=== PATIENT | female | born 1955 | race Caucasian/White ===

== ENCOUNTER → 2016-09-06 | Outpatient (CLI) | payer OTHER ==
--- NOTE | 2016-09-06 17:34 | CT ---
EXAMINATION TYPE: CT ChestAbdPelvis w con DATE OF EXAM: 09/06/2016 5:14 PM COMPARISON: 03/29/2016 and 06/23/2015 HISTORY: Patient has no complaints at time of study. Follow up study for known uterine CA and lung n odule. CT DLP: 1938.1 mGycm Automated exposure control for dose reduction was used. CONTRAST: CT scan of the chest, abdomen and pelvis is performed with Oral Contrast and with IV Contrast, patien t injected with 100 mL of Omnipaque 300. FINDINGS: There is mild subsegmental atelectasis at the posterior lung bases. There is a faint noncalcified 8 m m nodule in the subpleural right lower lobe. There is no pleural effusion. There is no pericardial effusion. Liver spleen pancreas gallbladder appear normal. Bile ducts are not dilated. There is no adrenal mass. Kidneys show satisfactory contrast opacification. There is no hydronephrosi s. There is no retroperitoneal adenopathy. There is no ascites. There is no mediastinal adenopathy. There are no hilar masses. There is no evidence of aortic aneurys m or dissection. There is an umbilical hernia that contains omental fat. There is a large air-filled appendix. There i s no sign of appendicitis. I see no intestinal wall thickening. There are no dilated loops. Letter di stends smoothly. Hysterectomy is noted. There is no pelvic mass. There are spondylotic changes in the thoracic and lumbar spine. I see no focal bone destruction. There is hypertrophic facet arthropathy in the lower lumbar spine. IMPRESSION: Stable right lower lobe nodule compared to last CT scan of 03/29/2016. Stable umbilical h ernia. No sign of acute abdomen and pelvis. No evidence of recurrent tumor.
== END | disposition home or self-care (01) ==
LOC: RADCTMAIN 16:49
PROVIDERS: ATTEND Internal Medicine
DX: R91.1 Solitary pulmonary nodule (principal); C57.4 Malignant neoplasm of uterine adnexa, unspecified
CPT/HCPCS: 71260; 74177; Q9967

== ENCOUNTER → 2017-08-30 | Outpatient (CLI) | payer OTHER ==
--- NOTE | 2017-08-30 14:01 | MM ---
Reason for exam: screening (asymptomatic). Last mammogram was performed 1 year and 5 months ago. History: Patient is postmenopausal, has history of other cancer at age 58, and had first child at age 38. Family history of breast cancer in paternal aunt. Physical Findings: A clinical breast exam by your physician is recommended on an annual basis and results should be correlated with mammographic findings. MG Screening Mammo w CAD Bilateral CC and MLO view(s) were taken. Prior study comparison: March 31, 2016, bilateral MG screening mammo w CAD. March 30, 2015, bilateral MG screening mammo w CAD. There are scattered fibroglandular densities. There is chronic nodularity bilaterally. There is no discrete abnormality. ASSESSMENT: Benign, BI-RAD 2 RECOMMENDATION: Routine screening mammogram of both breasts in 1 year.
== END | disposition home or self-care (01) ==
LOC: RADMAMWWP 09:28
PROVIDERS: ATTEND Internal Medicine
DX: Z12.31 Encounter for screening mammogram for malignant neoplasm of breast (principal)
CPT/HCPCS: 77067

== ENCOUNTER → 2018-09-05 | Outpatient (CLI) | payer OTHER ==
--- NOTE | 2018-09-06 11:22 | MM ---
Reason for exam: screening (asymptomatic). Last mammogram was performed 1 year ago. History: Patient is postmenopausal, has history of other cancer at age 58, and had first child at age 38. Family history of breast cancer in paternal aunt. Physical Findings: A clinical breast exam by your physician is recommended on an annual basis and results should be correlated with mammographic findings. MG 3D Screening Mammo W/Cad Bilateral CC and MLO view(s) were taken. Prior study comparison: August 30, 2017, bilateral MG screening mammo w CAD. March 31, 2016, bilateral MG screening mammo w CAD. The breast tissue is almost entirely fat. There is chronic nodularity bilaterally. No significant changes when compared with prior studies. ASSESSMENT: Benign, BI-RAD 2 RECOMMENDATION: Routine screening mammogram of both breasts in 1 year.
== END ==
LOC: RADMAMWWP 08:41
PROVIDERS: ATTEND Internal Medicine
DX: Z12.31 Encounter for screening mammogram for malignant neoplasm of breast (principal)
CPT/HCPCS: 77063; 77067

== ENCOUNTER → 2019-11-27 | Outpatient (CLI) | payer MEDICARE ==
[2019-11-27 07:46] LABS: African American GFR (CKD) >90 (>60 ml/min/1.73 sqM); Blood Urea Nitrogen 12 mg/dL (7-17); Non-African American GFR(CKD) 86 (>60 ml/min/1.73 sqM)
--- NOTE | 2019-11-27 08:47 | US ---
EXAMINATION TYPE: US thyroid st tissue head/neck DATE OF EXAM: 11/27/2019 COMPARISON: NONE CLINICAL HISTORY: E01.0 Thyromegaly, R91.1 Lung nodule less than 6cm. Patient feels thyroid is swolle n GLAND SIZE: Right Lobe: 3.8 x 1.5 x 1.3 cm Overall Parenchyma: heterogenous Left Lobe: 4.0 x 1.2 x 1.4 cm Overall Parenchyma: heterogeneous Isthmus Thickness: 0.5 cm NODULES RIGHT: # of nodules measured on right: 0 LEFT: # of nodules measured on left: 0 ISTHMUS: # of nodules measured in the isthmus: 0 Bilateral neck scanned, no evidence of lymphadenopathy. Bilateral heterogeneous thyroid glands IMPRESSION: No sizable thyroid nodules. Tissue is heterogeneous which could be associated with thyroiditis. Corre late clinically.
--- NOTE | 2019-11-27 09:12 | CT ---
EXAMINATION TYPE: CT chest w con DATE OF EXAM: 11/27/2019 COMPARISON: Prior chest CT September 06, 2016 and March 29, 2016 HISTORY: Lung nodule, history of uterine cancer. CT DLP: 570.7 mGycm. Automated Exposure Control for Dose Reduction was Utilized. TECHNIQUE: CT scan of the thorax is performed following without and with IV Contrast, patient inject ed with 100 mL of Isovue 300. FINDINGS: LUNGS: Persistent dependent atelectasis bilateral lower lobes. Redemonstration of a few small scatter ed tiny calcified nodules are granulomas in the right lung. There is a stable 8 x 6 mm posterior righ t lower lobe nodule axial image 28 unchanged from prior CTs and is thus benign. No new greater than 4 mm pulmonary nodules or masses. No pleural effusion or pneumothorax seen bilaterally. MEDIASTINUM: There are no greater than 1 cm hilar or mediastinal lymph nodes. No pericardial effusi on is seen. Heart size stable and upper limits of normal. OTHER: Liver is low density consistent with mild diffuse fatty infiltration. Underlying scoliosis wit h moderate to severe multilevel spurring in the spine. IMPRESSION: Stable 8 x 6 mm posterior right lower lobe nodule from 2016 is thus considered benign. N o new suspicious nodules or masses identified.
== END | disposition home or self-care (01) ==
LOC: RADCTMAIN 06:52
PROVIDERS: ATTEND Internal Medicine
DX: E01.0 Iodine-deficiency related diffuse (endemic) goiter (principal); R91.1 Solitary pulmonary nodule; I10 Essential (primary) hypertension
CPT/HCPCS: 82565; 84520; 76536; 71260; 36415; Q9967

== ENCOUNTER → 2019-12-03 | Outpatient (CLI) | payer MEDICARE ==
--- NOTE | 2019-12-03 11:00 | MM ---
Reason for exam: screening (asymptomatic). Last mammogram was performed 1 year and 3 months ago. History: Patient is postmenopausal, has history of other cancer at age 58, and had first child at age 38. Family history of breast cancer in paternal aunt. Physical Findings: A clinical breast exam by your physician is recommended on an annual basis and results should be correlated with mammographic findings. MG Screening Mammo w CAD Bilateral CC and MLO view(s) were taken. Prior study comparison: September 05, 2018, bilateral MG 3d screening mammo w/cad. August 30, 2017, bilateral MG screening mammo w CAD. There are scattered fibroglandular densities. There is chronic nodularity bilaterally. No significant changes when compared with prior studies. ASSESSMENT: Benign, BI-RAD 2 RECOMMENDATION: Routine screening mammogram of both breasts in 1 year.
== END | disposition home or self-care (01) ==
LOC: RADMAMWWP 07:39
PROVIDERS: ATTEND Internal Medicine
DX: Z12.31 Encounter for screening mammogram for malignant neoplasm of breast (principal)
CPT/HCPCS: 77067

== ENCOUNTER → 2020-12-03 | Outpatient (CLI) | payer MEDICARE ==
--- NOTE | 2020-12-08 14:32 | MM ---
Reason for exam: screening (asymptomatic). Last mammogram was performed 1 year ago. History: Patient is postmenopausal, has history of other cancer at age 59, and had first child at age 38. Family history of breast cancer in paternal aunt. Physical Findings: A clinical breast exam by your physician is recommended on an annual basis and results should be correlated with mammographic findings. MG Screening Mammo w CAD Bilateral CC and MLO view(s) were taken. Prior study comparison: December 03, 2019, bilateral MG screening mammo w CAD. September 05, 2018, bilateral MG 3d screening mammo w/cad. There are scattered fibroglandular densities. There is chronic nodularity bilaterally. Asymmetry left posterior and lateral breast is unchanged. No significant changes when compared with prior studies. ASSESSMENT: Benign, BI-RAD 2 RECOMMENDATION: Routine screening mammogram of both breasts in 1 year.
== END | disposition home or self-care (01) ==
LOC: RADMAMWWP 07:47
PROVIDERS: ATTEND Internal Medicine
DX: Z12.31 Encounter for screening mammogram for malignant neoplasm of breast (principal); Z78.0 Asymptomatic menopausal state; Z85.9 Personal history of malignant neoplasm, unspecified; Z80.3 Family history of malignant neoplasm of breast
CPT/HCPCS: 77067

== ENCOUNTER → 2021-12-12 | Outpatient (CLI) | payer MEDICARE ==
--- NOTE | 2021-12-12 15:19 | BD ---
EXAMINATION TYPE: Axial Bone Density DATE OF EXAM: 12/12/2021 COMPARISON: NONE CLINICAL HISTORY: 66 years year old Female. ICD-10 CODE: N95.8 MENOPAUSAL AND PERIMENOPAUSAL DISORDE RS Height: 61.2 IN Weight: 220 LBS RISK FACTORS HISTORY OF: Active: MODERATE Postmenopausal woman: TOTAL HYST AGE 60 MEDICATIONS: Thyroid Medications: YES Which medication: LEVOXYL How Lon+ YEARS Additional Medications: VIT D, LEVOXYL, HIGH BLOOD PRESSURE MEDS, METOPROLOL, LISINOPRIL, PRAVASTATIN , ASPIRIN 81 MG, EXAM MEASUREMENTS: Bone mineral densitometry was performed using the Fix8 System. Bone mineral density as measured about the Lumbar spine is: ----- L1-L4(G/cm2): 1.617 T Score Values are as follows: ----- L1: 2.3 ----- L2: 4.0 ----- L3: 3.4 ----- L4: 4.5 ----- L1-L4: 3.6 Bone mineral density BASELINE Bone mineral density about the R hip (g/cm2): 1.147 Bone mineral density about the L hip (g/cm2): 1.118 T Score values are as follows: -----R Neck: 0.8 -----L Neck: 0.6 -----R Total: 1.8 -----L Total: 1.8 Bone mineral density BASELINE FRAX%s: The graph provided illustrates a 5.5 chance for a major osteoporotic fx and a 0.1 chance for the hips probability for fx in 10 years time. IMPRESSION: Normal (Values between +1 and -1 indicate normal bone mass). Consider repeating this study in 5 year s or sooner if there is some new clinical indication. NOTE: T-SCORE=SD OF THE YOUNG ADULT MEAN.
--- NOTE | 2021-12-15 10:22 | MM ---
Reason for Exam: Screening (asymptomatic). Last screening mammogram was performed 12 month(s) ago. Patient History: Menarche at age 10. First Full-Term at age 38. Late child-bearing (after 30). Left ovary removed at age 58. Right ovary removed at age 58. Hysterectomy at age 58. Postmenopausal. Other cancer, age 59. Paternal aunt had breast cancer. Risk Values: Perri 5 year model risk: 2.6%. NCI Lifetime model risk: 8.7%. Prior Study Comparison: 03/31/2016 Bilateral Screening Mammogram, [facility]. 08/30/2017 Bilateral Screening Mammogram, [facility]. 09/05/2018 Bilateral Screening Mammogram, [facility]. 12/03/2019 Bilateral Screening Mammogram, [facility]. 12/03/2020 Bilateral Screening Mammogram, [facility]. Tissue Density: The breast tissue is almost entirely fat. Findings: Analyzed By CAD. There is no suspicious group of microcalcifications or new suspicious mass in either breast. Overall Assessment: Negative, BI-RAD 1 Management: Screening Mammogram of both breasts in 1 year. A clinical breast exam by your physician is recommended on an annual basis and results should be correlated with mammographic findings. Electronically signed and approved by: Dennis Nuñez DO
== END | disposition home or self-care (01) ==
LOC: RADMAMWWP 13:26
PROVIDERS: ATTEND Internal Medicine
DX: Z12.31 Encounter for screening mammogram for malignant neoplasm of breast (principal); Z78.0 Asymptomatic menopausal state
CPT/HCPCS: 77063; 77067; 77080

== ENCOUNTER → 2023-03-22 | Outpatient (CLI) | payer MEDICARE ==
--- NOTE | 2023-03-26 01:46 | MM ---
Reason for Exam: Screening (asymptomatic). Last mammogram was performed 1 year(s) and 3 month(s) ago. Patient History: Menarche at age 10. First Full-Term at age 38. Late child-bearing (after 30). Left ovary removed at age 58. Right ovary removed at age 58. Hysterectomy at age 58. Postmenopausal. Other cancer, age 59. Paternal aunt had breast cancer, age 50. Paternal cousin had breast cancer, age 50. Risk Values: Perri 5 year model risk: 2.6%. NCI Lifetime model risk: 8.3%. Prior Study Comparison: 12/03/2019 Bilateral Screening Mammogram, [facility]. 12/03/2020 Bilateral Screening Mammogram, [facility]. 12/12/2021 Bilateral MG 3D screening mammo w/cad, [facility]. Tissue Density: There are scattered fibroglandular densities. Findings: Analyzed By CAD. Chronic bilateral nodularity. There is no suspicious group of microcalcifications or new suspicious mass in either breast. Overall Assessment: Benign, BI-RAD 2 Management: Screening Mammogram of both breasts in 1 year. . Patient should continue monthly self-breast exams. A clinical breast exam by your physician is recommended on an annual basis. This exam should not preclude additional follow-up of suspicious palpable abnormalities. Note on Perri scores and lifetime risk: 1. A Perri score greater than 3% is considered moderate risk. If this is the case, consider specialist referral to assess eligibility for a risk reducing agent. 2. If overall lifetime risk for the development of breast cancer is 20% or higher, the patient may qualify for future screening with alternating mammogram and breast MRI. Electronically signed and approved by: Rosendo Hill M.D. Radiologist
== END | disposition home or self-care (01) ==
LOC: RADMAMWWP 16:22
PROVIDERS: ATTEND Internal Medicine
DX: Z12.31 Encounter for screening mammogram for malignant neoplasm of breast (principal); Z78.0 Asymptomatic menopausal state; Z80.3 Family history of malignant neoplasm of breast
CPT/HCPCS: 77063; 77067

== ENCOUNTER → 2024-03-24 | Outpatient (CLI) | payer MEDICARE ==
--- NOTE | 2024-03-25 19:08 | MM ---
Reason for Exam: Screening (asymptomatic). Last screening mammogram was performed 12 month(s) ago. Patient History: Menarche at age 10. First Full-Term at age 38. Late child-bearing (after 30). Left ovary removed at age 58. Right ovary removed at age 58. Hysterectomy at age 58. Postmenopausal. Other cancer, age 59. Paternal aunt had breast cancer, age 50. Paternal cousin had breast cancer, age 50. Risk Values: Perri 5 year model risk: 2.6%. NCI Lifetime model risk: 7.9%. Prior Study Comparison: 12/03/2020 Bilateral Screening Mammogram, [facility]. 12/12/2021 Bilateral MG 3D screening mammo w/cad, [facility]. 03/22/2023 Bilateral MG 3D screening mammo w/cad, [facility]. Tissue Density: There are scattered areas of fibroglandular density. Findings: Analyzed By CAD. Bilateral breast chronic nodularity, left greater than right. There is no suspicious group of microcalcifications or new suspicious mass in either breast. Overall Assessment: Benign, BI-RAD 2 Management: Screening Mammogram of both breasts in 1 year. . Patient should continue monthly self-breast exams. A clinical breast exam by your physician is recommended on an annual basis. This exam should not preclude additional follow-up of suspicious palpable abnormalities. Note on Perri scores and lifetime risk: 1. A Perri score greater than 3% is considered moderate risk. If this is the case, consider specialist referral to assess eligibility for a risk reducing agent. 2. If overall lifetime risk for the development of breast cancer is 20% or higher, the patient may qualify for future screening with alternating mammogram and breast MRI. [facility], , 03/25/2024 7:04 PM. Electronically signed and approved by: Rosendo Hill M.D. Radiologist
== END | disposition home or self-care (01) ==
LOC: RADMAMWWP 08:53
PROVIDERS: ATTEND Internal Medicine
CPT/HCPCS: 77063; 77067

== ENCOUNTER 2024-08-23 20:07 | Inpatient (IN) | payer MEDICARE ==
--- NOTE | 2024-08-23 20:29 | ED ---
Abdominal Pain HPI - General Stated Complaint: Abdominal pain Time Seen by Provider: 08/23/24 20:18 Source: patient, RN notes reviewed Mode of arrival: ambulatory Limitations: no limitations - History of Present Illness Initial Comments: This is a 69-year-old female with history of diverticulosis presenting for abdominal pain since 1300 this afternoon. Patient states pain started in her left abdomen with associated nausea and constipation before pain migrated to mid abdomen. Denies fever, chills, chest pain, dyspnea. - Related Data Allergies Allergy/AdvReac Type Severity Reaction Status Date / Time No Known Allergies Allergy Verified 08/23/24 20:31 Review of Systems ROS Statement: Those systems with pertinent positive or pertinent negative responses have been documented in the HPI. ROS Other: All systems not noted in ROS Statement are negative. General Exam General appearance: alert, in no apparent distress Head exam: Present: atraumatic, normocephalic, normal inspection Eye exam: Present: normal appearance, PERRL, EOMI. Absent: scleral icterus, conjunctival injection, periorbital swelling ENT exam: Present: normal exam, mucous membranes moist Neck exam: Present: normal inspection. Absent: tenderness, meningismus, lymphadenopathy Respiratory exam: Present: normal lung sounds bilaterally. Absent: respiratory distress, wheezes, rales, rhonchi, stridor, accessory muscle use, decreased breath sounds, prolonged expiratory Cardiovascular Exam: Present: regular rate, normal rhythm, normal heart sounds. Absent: systolic murmur, diastolic murmur, rubs, gallop, clicks GI/Abdominal exam: Present: soft, tenderness (Positive left lower quadrant tenderness without guarding. Negative McBurney point, Rovsing sign, Arango sign.), diminished bowel sounds, hypoactive bowel sounds. Absent: distended, guarding, rebound, rigid Extremities exam: Present: normal inspection, full ROM, normal capillary refill. Absent: tenderness, pedal edema, joint swelling, calf tenderness Back exam: Present: normal inspection Neurological exam: Present: alert, oriented X3, CN II-XII intact Psychiatric exam: Present: normal affect, normal mood Skin exam: Present: warm, dry, intact, normal color. Absent: rash Course Vital Signs 08/23/24 20:27 Temperature 97.9 F Pulse Rate 86 Respiratory 18 Rate Blood Pressure 153/93 O2 Sat by Pulse 97 Oximetry Medical Decision Making - Medical Decision Making Was pt. sent in by a medical professional or institution (MARIANA Bland, LAND SURVEYING MANAGER, urgent care, hospital, or retirement...) When possible be specific @ -No Did you speak to anyone other than the patient for history (EMS, parent, family, police, friend...)? What history was obtained from this source @ -No Did you review nursing and triage notes (agree or disagree)? Why? @ -I reviewed and agree with nursing and triage notes Were old charts reviewed (outside hosp., previous admission, EMS record, old EKG, old radiological studies, urgent care reports/EKG's, retirement records)? Report findings @ -No old charts were reviewed Differential Diagnosis (chest pain, altered mental status, abdominal pain women, abdominal pain men, vaginal bleeding, weakness, fever, dyspnea, syncope, headache, dizziness, GI bleed, back pain, seizure, CVA, palpatations, mental health, musculoskeletal)? @ -Differential Abdominal Pain Women: Appendicitis, Cholecystitis, diverticulosis, ischemic bowel, pancreatitis, hepatitis, UTI, gastroenteritis, AAA, incarcerated hernia, bowel obstruction, constipation, inflammatory bowel, hepatitis, peptic ulcer disease, splenic infarction, perforated viscus, vulvitis, ovarian torsion, PID, kidney stone, placenta abruption, this is not meant to be an all-inclusive list EKG interpreted by me (3pts min.). @ -Not done X-rays interpreted by me (1pt min.). @ -None done CT interpreted by me (1pt min.). @ - Abdomen/pelvic CT shows acute uncomplicated appendicitis colonic d iverticula, stable right lower lobe 7 mm pulmonary nodule, mild cardiomegaly, hepatic steatosis fat-containing inguinal hernia bilaterally with umbilical hernia. U/S interpreted by me (1pt. min.). @ -None done What testing was considered but not performed or refused? (CT, X-rays, U/S, la bs)? Why? @ -None What meds were considered but not given or refused? Why? @ -None Did you discuss the management of the patient with other professionals (professionals i.e. MARIANA Bland, LAND SURVEYING MANAGER, lab, RT, psych nurse, social secretary, physical sciences professor, teacher, freedom of information officer, test case developer)? Give summary @ -Spoke to Dr. Villarreal received from [facility] of patient admission for appendicitis.. Was smoking cessation discussed for >3mins.? @ -No Was critical care preformed (if so, how long)? @ -No Were there social determinants of health that impacted care today? How? (Homelessness, low income, unemployed, alcoholism, drug addiction, transportation, low edu. Level, literacy, decrease access to med. care, intermediate, rehab)? @ -No Was there de-escalation of care discussed even if they declined (Discuss DNR or withdrawal of care, Hospice)? DNR status @ -No What co-morbidities impacted this encounter? (DM, HTN, Smoking, COPD, CAD, Cancer, CVA, ARF, Chemo, Hep., AIDS, mental health diagnosis, sleep apnea, morbid obesity)? @ -Obesity Was patient admitted / discharged? Hospital course, mention meds given and route, prescriptions, significant lab abnormalities, going to OR and other pertinent info. @ -Lab work shows leukocytosis 18.8 with left shift. Hyperglycemia 164 and lactic acidosis 4.0. UA shows ketonuria and unclean catch. Abdomen/pelvic CT shows acute uncomplicated appendicitis colonic diverticula, stable right lower lobe 7 mm pulmonary nodule, mild cardiomegaly, hepatic steatosis fat-containing inguinal hernia bilaterally with umbilical hernia. Patient initially provided IV normal saline, Dilaudid and Toradol as well as p.o. mag citrate. Patient notes pain relief. IV Zosyn initiated. Spoke to Dr. Villarreal received from [facility] of patient admission for appendicitis. Discussed patient with Dr. Delgado. Undiagnosed new problem with uncertain prognosis? @ -No Drug Therapy requiring intensive monitoring for toxicity (Heparin, Nitro, Insulin, Cardizem)? @ -No Were any procedures done? @ -No Diagnosis/symptom? @ -Appendicitis Acute, or Chronic, or Acute on Chronic? @ -Acute Uncomplicated (without systemic symptoms) or Complicated (systemic symptoms)? @ -Uncomplicated Side effects of treatment? @ -No Exacerbation, Progression, or Severe Exacerbation? @ -No Poses a threat to life or bodily function? How? (Chest pain, USA, DC, pneumonia, PE, COPD, DKA, ARF, appy, cholecystitis, CVA, Diverticulitis, Homicidal, Suicidal, threat to staff... and all critical care pts) @ -Appendicitis, possibly causing sepsis - Lab Data Result diagrams: 08/23/24 21:05 08/23/24 21:05 Lab Results 08/23/24 08/23/24 08/23/24 Range/Units 21:05 21:05 21:05 WBC 18.8 H (3.8-10.6) k/uL RBC 5.32 (3.80-5.40) m/uL Hgb 15.4 (11.4-16.0) gm/dL Hct 46.2 H (34.0-46.0) % MCV 86.7 (80.0-100.0) fL MCH 29.0 (25.0-35.0) pg MCHC 33.4 (31.0-37.0) g/dL RDW 13.2 (11.5-15.5) % Plt Count 292 (150-450) k/uL MPV 8.6 Neutrophils % 93 % Lymphocytes % 5 % Monocytes % 1 % Eosinophils % 1 % Basophils % 0 % Neutrophils # 17.4 H (1.3-7.7) k/uL Lymphocytes # 0.9 L (1.0-4.8) k/uL Monocytes # 0.2 (0-1.0) k/uL Eosinophils # 0.2 (0-0.7) k/uL Basophils # 0.1 (0-0.2) k/uL Sodium 136 L (137-145) mmol/L Potassium 4.0 (3.5-5.1) mmol/L Chloride 98 (98-107) mmol/L Carbon Dioxide 22 (22-30) mmol/L Anion Gap 16 mmol/L BUN 12 (7-17) mg/dL Creatinine 0.71 (0.52-1.04) mg/dL Est GFR (CKD-EPI)AfAm >90 (>60 ml/min/1.73 sqM) Est GFR (CKD-EPI)NonAf 87 (>60 ml/min/1.73 sqM) Glucose 164 H (74-99) mg/dL Lactic Ac Sepsis Rflx Plasma Lactic Acid Good (0.7-2.0) mmol/L Calcium 10.1 (8.4-10.2) mg/dL Total Bilirubin 1.1 (0.2-1.3) mg/dL AST 25 (14-36) U/L ALT 29 (4-34) U/L Alkaline Phosphatase 79 (38-126) U/L Total Protein 7.9 (6.3-8.2) g/dL Albumin 4.8 (3.5-5.0) g/dL Amylase 39 (30-110) U/L Lipase 37 (23-300) U/L Urine Color Yellow Urine Appearance Cloudy H (Clear) Urine pH 6.0 (5.0-8.0) Ur Specific [place] 1.026 (1.001-1.035) Urine Protein Trace H (Negative) Urine Glucose (UA) Negative (Negative) Urine Ketones 2+ H (Negative) Urine Blood Trace H (Negative) Urine Nitrite Negative (Negative) Urine Bilirubin Negative (Negative) Urine Urobilinogen <2.0 (<2.0) mg/dL Ur Leukocyte Esterase Negative (Negative) Urine RBC 6 H (0-5) /hpf Urine WBC 17 H (0-5) /hpf Ur Squamous Epith Cells 22 H (0-4) /hpf Amorphous Sediment Occasional H (None) /hpf Urine Bacteria Rare H (None) /hpf Hyaline Casts 10 H (0-2) /lpf Urine Mucus Few H (None) /hpf 08/23/24 08/23/24 Range/Units 21:05 21:56 WBC (3.8-10.6) k/uL RBC (3.80-5.40) m/uL Hgb (11.4-16.0) gm/dL Hct (34.0-46.0) % MCV (80.0-100.0) fL MCH (25.0-35.0) pg MCHC (31.0-37.0) g/dL RDW (11.5-15.5) % Plt Count (150-450) k/uL MPV Neutrophils % % Lymphocytes % % Monocytes % % Eosinophils % % Basophils % % Neutrophils # (1.3-7.7) k/uL Lymphocytes # (1.0-4.8) k/uL Monocytes # (0-1.0) k/uL Eosinophils # (0-0.7) k/uL Basophils # (0-0.2) k/uL Sodium (137-145) mmol/L Potassium (3.5-5.1) mmol/L Chloride (98-107) mmol/L Carbon Dioxide (22-30) mmol/L Anion Gap mmol/L BUN (7-17) mg/dL Creatinine (0.52-1.04) mg/dL Est GFR (CKD-EPI)AfAm (>60 ml/min/1.73 sqM) Est GFR (CKD-EPI)NonAf (>60 ml/min/1.73 sqM) Glucose (74-99) mg/dL Lactic Ac Sepsis Rflx Y Plasma Lactic Acid Good 4.0 H* (0.7-2.0) mmol/L Calcium (8.4-10.2) mg/dL Total Bilirubin (0.2-1.3) mg/dL AST (14-36) U/L ALT (4-34) U/L Alkaline Phosphatase (38-126) U/L Total Protein (6.3-8.2) g/dL Albumin (3.5-5.0) g/dL Amylase (30-110) U/L Lipase (23-300) U/L Urine Color Urine Appearance (Clear) Urine pH (5.0-8.0) Ur Specific [place] (1.001-1.035) Urine Protein (Negative) Urine Glucose (UA) (Negative) Urine Ketones (Negative) Urine Blood (Negative) Urine Nitrite (Negative) Urine Bilirubin (Negative) Urine Urobilinogen (<2.0) mg/dL Ur Leukocyte Esterase (Negative) Urine RBC (0-5) /hpf Urine WBC (0-5) /hpf Ur Squamous Epith Cells (0-4) /hpf Amorphous Sediment (None) /hpf Urine Bacteria (None) /hpf Hyaline Casts (0-2) /lpf Urine Mucus (None) /hpf Disposition Clinical Impression: Acute appendicitis Disposition: ADMITTED IP TO THIS [facility] Condition: Good Is patient prescribed a controlled substance at d/c from ED?: No Referrals: Carina Rainey MD [Primary Care Provider] - 1-2 days Time of Disposition: 22:57 Decision Date: 08/23/24 Decision Time: 22:57
[2024-08-23 21:28] LABS: Basophils # (A) 0.1 k/uL (0-0.2); Basophils % (A) 0 %; Eosinophils # (A) 0.2 k/uL (0-0.7); Eosinophils % (A) 1 %; HCT 46.2 % (34.0-46.0); HGB 15.4 gm/dL (11.4-16.0); Lymphocytes # (A) 0.9 k/uL (1.0-4.8); Lymphocytes % (A) 5 %; MCHC 33.4 g/dL (31.0-37.0); MCV 86.7 fL (80.0-100.0); Mean Platelet Volume 8.6; Monocytes # (A) 0.2 k/uL (0-1.0); Monocytes % (A) 1 %; Neutrophils # (A) 17.4 k/uL (1.3-7.7); Neutrophils % (A) 93 %; Platelet Count 292 k/uL (150-450); RBC 5.32 m/uL (3.80-5.40); RDW 13.2 % (11.5-15.5); WBC 18.8 k/uL (3.8-10.6)
[2024-08-23 21:30] LABS: AST 25 U/L (14-36); African American GFR (CKD) >90 (>60 ml/min/1.73 sqM); Albumin 4.8 g/dL (3.5-5.0); Alkaline Phosphatase 79 U/L (38-126); Amylase 39 U/L (30-110); Anion Gap 16 mmol/L; Blood Urea Nitrogen 12 mg/dL (7-17); Calcium 10.1 mg/dL (8.4-10.2); Carbon Dioxide 22 mmol/L (22-30); Chloride 98 mmol/L (98-107); Glucose 164 mg/dL (74-99); Lipase 37 U/L (23-300); Non-African American GFR(CKD) 87 (>60 ml/min/1.73 sqM); Sodium 136 mmol/L (137-145); Total Bilirubin 1.1 mg/dL (0.2-1.3); Total Protein 7.9 g/dL (6.3-8.2)
[2024-08-23] MEDS: KETOROLAC 15 MG/ML 1 ML VIAL IVP STA (21:34)
[2024-08-23] MEDS: HYDROmorphone 0.5 MG/0.5 ML SYRINGE IVP STA (21:36)
[2024-08-23] MEDS: MAGNESIUM CITRATE 296 ML BOTTLE PO ONE (21:41)
[2024-08-23 21:47] LABS: Amorphous Sediment,Urine Occasional /hpf; Appearance,Urine Cloudy (Clear); Bacteria,Urine Rare /hpf; Bilirubin,Urine Negative (Negative); Blood,Urine Trace (Negative); Color,Urine Yellow; Glucose,Urine (UA) Negative (Negative); Hyaline Casts,Urine 10 /lpf (0-2); Ketones,Urine 2+ (Negative); Leukocyte Esterase,Urine Negative (Negative); Mucus,Urine Few /hpf; Nitrite,Urine Negative (Negative); Protein,Urine Trace (Negative); RBC,Urine 6 /hpf (0-5); Specific Gravity,Urine 1.026 (1.001-1.035); Squamous Epithelial Cell,Urine 22 /hpf (0-4); Urobilinogen,Urine <2.0 mg/dL (<2.0); WBC,Urine 17 /hpf (0-5)
[2024-08-23 21:54] LABS: ALT 29 U/L (4-34)
[2024-08-23] MEDS: SODIUM CHLORIDE 0.9% 1,000 ML IV STA ×2 (22:01→22:23)
--- NOTE | 2024-08-23 22:43 | CT ---
EXAMINATION TYPE: CT abdomen pelvis w con DATE OF EXAM: 08/23/2024 10:25 PM COMPARISON: 09/06/2016 CLINICAL INDICATION: Female, 69 years old with history of abdominal pain; TECHNIQUE: Axial CT abdomen pelvis w con;Sagittal and coronal reformats were created on a separate w orkstation. Contrast used:100 mL of Isovue 370 with IV Contrast, (none if empty) Oral contrast used: (none if empty) CT DLP: 100 mGycm, Automated exposure control for dose reduction was used. FINDINGS: LOWER CHEST: Right lower lobe 7 mm pulmonary nodule. The heart is enlarged for size. ABDOMEN LIVER: Diffusely hypoattenuating parenchyma. GALLBLADDER AND BILE DUCTS: Unremarkable. PANCREAS: Unremarkable. SPLEEN: Unremarkable. ADRENAL GLANDS: Unremarkable. KIDNEYS AND URETERS: No evidence of hydronephrosis or renal calculus. The ureters are unremarkable. PELVIS BLADDER: No evidence for wall thickening or mass given limitations of exam. REPRODUCTIVE: The uterus is surgically absent. ABDOMEN & PELVIS STOMACH AND BOWEL: No evidence of bowel obstruction. Scattered colonic diverticula. The appendix is e longated and thickened up to 14 mm. No organizing fluid collection or evidence of perforation. PERITONEUM/RETROPERITONEUM: No evidence of pneumoperitoneum or free fluid. VASCULATURE: No evidence of aortic aneurysm. MUSCULOSKELETAL: No acute osseous abnormalities. Moderate disc degeneration changes are present throu ghout the thoracolumbar spine. Scoliosis changes of the spine. Grade 1 anterolisthesis of L4 and L5. LYMPH NODES: No gross evidence for lymphadenopathy. SOFT TISSUE/ABDOMINAL WALL: Fat-containing umbilical hernia. Fat-containing inguinal hernias. IMPRESSION: 1. Acute uncomplicated appendicitis. 2. Scattered colonic diverticula. 3. Right lower lobe 7 mm pulmonary nodule. Stable back to 2019. 4. Mild cardiomegaly. 5. Hepatic steatosis. 6. Fat-containing inguinal hernias bilaterally and umbilical hernia. 7. Moderate degeneration changes spine with scoliosis.[facility], , 08/23/2024 10:41 PM
[2024-08-23] MEDS ORDERED: ONDANSETRON 4 MG/2 ML VIAL IVP PRN (23:09)
[2024-08-23] MEDS ORDERED: NALOXONE 0.4 MG/ML 1 ML VIAL IV PRN (23:09)
[2024-08-23] MEDS ORDERED: ACETAMINOPHEN TAB 325 MG TAB PO PRN (23:09)
[2024-08-23] MEDS: PIPERACILLIN-TAZOBACTAM 3.375 GM in SODIUM CHLORIDE 0.9% 100 ML IVPB STA (23:52)
--- NOTE | 2024-08-24 01:16 | ED ---
Medical Decision Making - Lab Data Result diagrams: 08/23/24 21:05 08/23/24 21:05 Lab Results 08/23/24 08/23/24 08/23/24 Range/Units 21:05 21:05 21:05 WBC 18.8 H (3.8-10.6) k/uL RBC 5.32 (3.80-5.40) m/uL Hgb 15.4 (11.4-16.0) gm/dL Hct 46.2 H (34.0-46.0) % MCV 86.7 (80.0-100.0) fL MCH 29.0 (25.0-35.0) pg MCHC 33.4 (31.0-37.0) g/dL RDW 13.2 (11.5-15.5) % Plt Count 292 (150-450) k/uL MPV 8.6 Neutrophils % 93 % Lymphocytes % 5 % Monocytes % 1 % Eosinophils % 1 % Basophils % 0 % Neutrophils # 17.4 H (1.3-7.7) k/uL Lymphocytes # 0.9 L (1.0-4.8) k/uL Monocytes # 0.2 (0-1.0) k/uL Eosinophils # 0.2 (0-0.7) k/uL Basophils # 0.1 (0-0.2) k/uL Sodium 136 L (137-145) mmol/L Potassium 4.0 (3.5-5.1) mmol/L Chloride 98 (98-107) mmol/L Carbon Dioxide 22 (22-30) mmol/L Anion Gap 16 mmol/L BUN 12 (7-17) mg/dL Creatinine 0.71 (0.52-1.04) mg/dL Est GFR (CKD-EPI)AfAm >90 (>60 ml/min/1.73 sqM) Est GFR (CKD-EPI)NonAf 87 (>60 ml/min/1.73 sqM) Glucose 164 H (74-99) mg/dL Lactic Ac Sepsis Rflx Plasma Lactic Acid Good (0.7-2.0) mmol/L Calcium 10.1 (8.4-10.2) mg/dL Total Bilirubin 1.1 (0.2-1.3) mg/dL AST 25 (14-36) U/L ALT 29 (4-34) U/L Alkaline Phosphatase 79 (38-126) U/L Total Protein 7.9 (6.3-8.2) g/dL Albumin 4.8 (3.5-5.0) g/dL Amylase 39 (30-110) U/L Lipase 37 (23-300) U/L Urine Color Yellow Urine Appearance Cloudy H (Clear) Urine pH 6.0 (5.0-8.0) Ur Specific [place] 1.026 (1.001-1.035) Urine Protein Trace H (Negative) Urine Glucose (UA) Negative (Negative) Urine Ketones 2+ H (Negative) Urine Blood Trace H (Negative) Urine Nitrite Negative (Negative) Urine Bilirubin Negative (Negative) Urine Urobilinogen <2.0 (<2.0) mg/dL Ur Leukocyte Esterase Negative (Negative) Urine RBC 6 H (0-5) /hpf Urine WBC 17 H (0-5) /hpf Ur Squamous Epith Cells 22 H (0-4) /hpf Amorphous Sediment Occasional H (None) /hpf Urine Bacteria Rare H (None) /hpf Hyaline Casts 10 H (0-2) /lpf Urine Mucus Few H (None) /hpf 08/23/24 08/23/24 Range/Units 21:05 21:56 WBC (3.8-10.6) k/uL RBC (3.80-5.40) m/uL Hgb (11.4-16.0) gm/dL Hct (34.0-46.0) % MCV (80.0-100.0) fL MCH (25.0-35.0) pg MCHC (31.0-37.0) g/dL RDW (11.5-15.5) % Plt Count (150-450) k/uL MPV Neutrophils % % Lymphocytes % % Monocytes % % Eosinophils % % Basophils % % Neutrophils # (1.3-7.7) k/uL Lymphocytes # (1.0-4.8) k/uL Monocytes # (0-1.0) k/uL Eosinophils # (0-0.7) k/uL Basophils # (0-0.2) k/uL Sodium (137-145) mmol/L Potassium (3.5-5.1) mmol/L Chloride (98-107) mmol/L Carbon Dioxide (22-30) mmol/L Anion Gap mmol/L BUN (7-17) mg/dL Creatinine (0.52-1.04) mg/dL Est GFR (CKD-EPI)AfAm (>60 ml/min/1.73 sqM) Est GFR (CKD-EPI)NonAf (>60 ml/min/1.73 sqM) Glucose (74-99) mg/dL Lactic Ac Sepsis Rflx Y Plasma Lactic Acid Good 4.0 H* (0.7-2.0) mmol/L Calcium (8.4-10.2) mg/dL Total Bilirubin (0.2-1.3) mg/dL AST (14-36) U/L ALT (4-34) U/L Alkaline Phosphatase (38-126) U/L Total Protein (6.3-8.2) g/dL Albumin (3.5-5.0) g/dL Amylase (30-110) U/L Lipase (23-300) U/L Urine Color Urine Appearance (Clear) Urine pH (5.0-8.0) Ur Specific [place] (1.001-1.035) Urine Protein (Negative) Urine Glucose (UA) (Negative) Urine Ketones (Negative) Urine Blood (Negative) Urine Nitrite (Negative) Urine Bilirubin (Negative) Urine Urobilinogen (<2.0) mg/dL Ur Leukocyte Esterase (Negative) Urine RBC (0-5) /hpf Urine WBC (0-5) /hpf Ur Squamous Epith Cells (0-4) /hpf Amorphous Sediment (None) /hpf Urine Bacteria (None) /hpf Hyaline Casts (0-2) /lpf Urine Mucus (None) /hpf Disposition Clinical Impression: Acute appendicitis Disposition: ADMITTED IP TO THIS HOSP Condition: Good Referrals: Carina Rainey MD [Primary Care Provider] - 1-2 days Procedures - [place] Protocol (Time Out) Nurse: Martinez Garza - Sepsis Sepsis Focused Exam #1 Time Sepsis Criteria Met: 21:00 Sepsis Focused Exam Date: 08/23/24 Sepsis Focused Exam Time: 21:00 Sepsis Focused Exam Complete: Yes Vital Signs & RN Notes Reviewed: Yes Capillary Refill: < 2 Seconds: Fingers, Toes Peripheral Pulses: Normal: Radial (R), Radial (L), Posterior Tibialis (R), Posterior Tibialis (L) Skin Color: Normal for Patient Respiratory Exam: normal lung sounds Cardiovascular Exam: regular rate, normal rhythm
[2024-08-24] MEDS: SODIUM CHLORIDE 0.9% 1,000 ML IV SCH (02:29)
[2024-08-24] MEDS: HYDROmorphone 0.5 MG/0.5 ML SYRINGE IVP PRN (03:49)
[2024-08-24] MEDS ORDERED: HYDROmorphone 0.5 MG/0.5 ML SYRINGE IVP PRN (07:00)
[2024-08-24 10:30] LABS: Prothrombin Time 11.1 sec (10.0-12.5)
[2024-08-24] MEDS ORDERED: PHENYLEPHRINE-0.9% NACL SYG 1,000 MCG/10 ML SYRINGE ONE (11:16)
[2024-08-24] MEDS ORDERED: NEOSTIGMINE 1 MG/ML 10 ML VIAL ONE (11:16)
[2024-08-24] MEDS ORDERED: fentaNYL (PF) 50 MCG/ML 2 ML AMP ONE (11:16)
[2024-08-24] MEDS ORDERED: SUCCINYLCHOLINE CHLORIDE 200 MG/10 ML VIAL IV ONE (11:16)
[2024-08-24] MEDS: SODIUM CHLORIDE 0.9% 1,000 ML IV ONE (11:16)
[2024-08-24] MEDS ORDERED: PROPOFOL 10 MG/ML 20 ML VIAL IV ONE (11:16)
[2024-08-24] MEDS ORDERED: GLYCOPYRROLATE 0.2 MG/ML 2 ML VIAL ONE (11:16)
[2024-08-24] MEDS ORDERED: ROCURONIUM 10 MG/ML (5 ML VIAL) IV ONE (11:16)
[2024-08-24] MEDS ORDERED: ONDANSETRON 4 MG/2 ML VIAL ONE (11:16)
[2024-08-24] MEDS ORDERED: LIDOCAINE 1% INJ 10MG/ML (20 ML MDV) ONE (11:16)
[2024-08-24] MEDS ORDERED: MIDAZOLAM 2 MG/2 ML VIAL ONE (11:16)
--- NOTE | 2024-08-24 11:22 | P.GSCN ---
History of Present Illness History of present illness: This is a 69-year-old female with history of diverticulosis presenting for abdominal pain since 1300 this afternoon. Patient states pain started in her left abdomen with associated nausea and constipation before pain migrated to mid abdomen. Denies fever, chills, chest pain, dyspnea. Review of Systems - Constitutional Reports as per HPI Past Medical History Past Medical History: Hypertension History of Any Multi-Drug Resistant Organisms: None Reported Past Surgical History: Hysterectomy Past Anesthesia/Blood Transfusion Reactions: No Reported Reaction Past Psychological History: No Psychological Hx Reported Smoking Status: Never smoker Past Alcohol Use History: None Reported Past Drug Use History: None Reported Medications and Allergies Home Medications Medication Instructions Recorded Confirmed Type Aspirin [Adult Low Dose Aspirin EC] 81 mg PO HS 08/24/24 08/24/24 History Levothyroxine Sodium [Synthroid] 75 mcg PO DAILY 08/24/24 08/24/24 History Lisinopril-Hctz 10-12.5 mg 1 tab PO DAILY 08/24/24 08/24/24 History [Zestoretic 10-12.5] Metoprolol Tartrate [Lopressor] 50 mg PO BID 08/24/24 08/24/24 History Pravastatin Sodium [Pravachol] 40 mg PO HS 08/24/24 08/24/24 History Allergies Allergy/AdvReac Type Severity Reaction Status Date / Time No Known Allergies Allergy Verified 08/23/24 20:31 Surgical - Exam Osteopathic Statement: *. No significant issues noted on an osteopathic structural exam other than those noted in the History and Physical/Consult. Vital Signs Temp Pulse Resp BP Pulse Ox 97.9 F 86 18 153/93 97 08/23/24 20:27 08/23/24 20:27 08/23/24 20:27 08/23/24 20:27 08/23/24 20:27 gen: nad cv: rrr pul: non labored breathing abd: soft, tender to palpation in the right and left lower quadrant no guarding or rebound tenderness Results - Labs 08/23/24 21:05 08/23/24 21:05 Abnormal Lab Results - Last 24 Hours (Table) 08/23/24 08/23/24 08/23/24 Range/Units 21:05 21:05 21:05 WBC 18.8 H (3.8-10.6) k/uL Hct 46.2 H (34.0-46.0) % Neutrophils # 17.4 H (1.3-7.7) k/uL Lymphocytes # 0.9 L (1.0-4.8) k/uL Sodium 136 L (137-145) mmol/L Glucose 164 H (74-99) mg/dL Plasma Lactic Acid Good (0.7-2.0) mmol/L Urine Appearance Cloudy H (Clear) Urine Protein Trace H (Negative) Urine Ketones 2+ H (Negative) Urine Blood Trace H (Negative) Urine RBC 6 H (0-5) /hpf Urine WBC 17 H (0-5) /hpf Ur Squamous Epith Cells 22 H (0-4) /hpf Amorphous Sediment Occasional H (None) /hpf Urine Bacteria Rare H (None) /hpf Hyaline Casts 10 H (0-2) /lpf Urine Mucus Few H (None) /hpf 08/23/24 Range/Units 21:05 WBC (3.8-10.6) k/uL Hct (34.0-46.0) % Neutrophils # (1.3-7.7) k/uL Lymphocytes # (1.0-4.8) k/uL Sodium (137-145) mmol/L Glucose (74-99) mg/dL Plasma Lactic Acid Good 4.0 H* (0.7-2.0) mmol/L Urine Appearance (Clear) Urine Protein (Negative) Urine Ketones (Negative) Urine Blood (Negative) Urine RBC (0-5) /hpf Urine WBC (0-5) /hpf Ur Squamous Epith Cells (0-4) /hpf Amorphous Sediment (None) /hpf Urine Bacteria (None) /hpf Hyaline Casts (0-2) /lpf Urine Mucus (None) /hpf Diabetes panel 08/23/24 Range/Units 21:05 Sodium 136 L (137-145) mmol/L Potassium 4.0 (3.5-5.1) mmol/L Chloride 98 (98-107) mmol/L Carbon Dioxide 22 (22-30) mmol/L BUN 12 (7-17) mg/dL Creatinine 0.71 (0.52-1.04) mg/dL Glucose 164 H (74-99) mg/dL Calcium 10.1 (8.4-10.2) mg/dL AST 25 (14-36) U/L ALT 29 (4-34) U/L Alkaline Phosphatase 79 (38-126) U/L Total Protein 7.9 (6.3-8.2) g/dL Albumin 4.8 (3.5-5.0) g/dL Calcium panel 08/23/24 Range/Units 21:05 Calcium 10.1 (8.4-10.2) mg/dL Albumin 4.8 (3.5-5.0) g/dL Pituitary panel 08/23/24 Range/Units 21:05 Sodium 136 L (137-145) mmol/L Potassium 4.0 (3.5-5.1) mmol/L Chloride 98 (98-107) mmol/L Carbon Dioxide 22 (22-30) mmol/L BUN 12 (7-17) mg/dL Creatinine 0.71 (0.52-1.04) mg/dL Glucose 164 H (74-99) mg/dL Calcium 10.1 (8.4-10.2) mg/dL Adrenal panel 08/23/24 Range/Units 21:05 Sodium 136 L (137-145) mmol/L Potassium 4.0 (3.5-5.1) mmol/L Chloride 98 (98-107) mmol/L Carbon Dioxide 22 (22-30) mmol/L BUN 12 (7-17) mg/dL Creatinine 0.71 (0.52-1.04) mg/dL Glucose 164 H (74-99) mg/dL Calcium 10.1 (8.4-10.2) mg/dL Total Bilirubin 1.1 (0.2-1.3) mg/dL AST 25 (14-36) U/L ALT 29 (4-34) U/L Alkaline Phosphatase 79 (38-126) U/L Total Protein 7.9 (6.3-8.2) g/dL Albumin 4.8 (3.5-5.0) g/dL Assessment and Plan Assessment: 69 yo female w/ abdominal pain ctap demonstrates appendicitis -iv abx npo OR for diagnostic laparoscopy w/ appendectomy Time with Patient: Greater than 30
[2024-08-24] MEDS: SODIUM CHLORIDE 0.9% 100 ML with ceFAZolin 2,000 MG IV ONE (11:30)
[2024-08-24] MEDS: LACTATED RINGERS 1,000 ML IV ONE (11:30)
[2024-08-24] MEDS: LIDOCAINE 1%-EPI 1:100,000 20 ML VIAL SQ ONE (11:42)
[2024-08-24] MEDS: HYDROmorphone 0.5 MG/0.5 ML SYRINGE IVP ONE (12:27)
[2024-08-24] MEDS: KETOROLAC 15 MG/ML 1 ML VIAL IVP ONE (12:30)
[2024-08-24] MEDS: METOCLOPRAMIDE 5 MG/ML 2 ML VIAL IVP ONE (12:33)
--- NOTE | 2024-08-24 12:48 | P.OP ---
Date of Procedure: 08/24/24 Preoperative Diagnosis: appendicitis Postoperative Diagnosis: appendicitis Anesthesia: JADEA Surgeon: Flex Patel Pathology: other (appendicitis) Condition: stable Disposition: PACU Indications for Procedure: appendicitis Operative Findings: appendicitis Description of Procedure: Patient was brought to the operative room where a timeout was performed and everyone agreed with the information recited.Patient was cleaned and draped in sterile fashion. A number 15 blade was used to make an incision in the left upper quadrant, periumbilical region and the suprapubic region. A 5mm visiport, 12 mm visiport, and 5mm visiport was placed. The appendix was immediately identified grasped and lifted and mesentery was taken down using a ligasure device. The appendix was stapled off and placed in an endocatch bag and removed out of the 12 mm port. a hemostatic timeout was peformed and surgicel powder was placed. the left lower quadrant and pelvis was surveyed and no acute pathology was observed. I closed the 12mm port using 0 vicryl. The instruments were removed under direct visualization. The skin was closed using 4-0 vicryl in an interrupted fashion. The patient was transferred to pacu in stable condition.
--- NOTE | 2024-08-24 14:56 | P.HPIM ---
History of Present Illness This is a pleasant 69 years old female who presents initially because of lower abdominal pain and constipation. Patient was found to have acute pancreatitis and she was taken to the OR. She is s/p laparoscopic cholecystectomy. Today's postop day #0. I saw the patient in the recovery room, she was still drowsy could not provide i nformation that was obtained from staff cardiac code On admission patient is afebrile. Vitals stable. Labs showing leukocytosis with WBC 18.8 rest of CBC, BMP, LFT and i INR were unremarkable. Lactic acid was elevated 4 came back to reference range at 1.9. CT of the abdomen pelvis showing acute uncomplicated appendicitis, diverticulosis, right pulmonary nodule stable since 2019 and hepatic steatosis. Review of Systems Review of systems CONSTITUTIONAL: No fever, no malaise, no fatigue. HEENT: No recent visual problems or hearing problems. Denied any sore throat. CARDIOVASCULAR: No orthopnea, PND, no palpitations, no syncope. PULMONARY: No shortness of breath, no cough, no hemoptysis. GASTROINTESTINAL: No diarrhea, no nausea, no vomiting, . Normoactive bowel sounds. NEUROLOGICAL: No headaches, no weakness, no numbness. HEMATOLOGICAL: Denies any bleeding or petechiae. GENITOURINARY: Denies any burning micturition, frequency, or urgency. MUSCULOSKELETAL/RHEUMATOLOGICAL: Denies any joint pain, swelling, or any muscle pain. ENDOCRINE: Denies any polyuria or polydipsia. Past Medical History Past Medical History: Hypertension History of Any Multi-Drug Resistant Organisms: None Reported Past Surgical History: Hysterectomy Past Anesthesia/Blood Transfusion Reactions: No Reported Reaction Past Psychological History: No Psychological Hx Reported Smoking Status: Never smoker Past Alcohol Use History: None Reported Past Drug Use History: None Reported Medications and Allergies Home Medications Medication Instructions Recorded Confirmed Type Aspirin [Adult Low Dose Aspirin EC] 81 mg PO HS 08/24/24 08/24/24 History Levothyroxine Sodium [Synthroid] 75 mcg PO DAILY 08/24/24 08/24/24 History Lisinopril-Hctz 10-12.5 mg 1 tab PO DAILY 08/24/24 08/24/24 History [Zestoretic 10-12.5] Metoprolol Tartrate [Lopressor] 50 mg PO BID 08/24/24 08/24/24 History Pravastatin Sodium [Pravachol] 40 mg PO HS 08/24/24 08/24/24 History Allergies Allergy/AdvReac Type Severity Reaction Status Date / Time No Known Allergies Allergy Verified 08/23/24 20:31 Physical Exam Vitals: Vital Signs Temp Pulse Pulse Pulse Resp BP BP 08/24/24 12:58 79 14 125/71 08/24/24 12:46 76 14 133/72 08/24/24 12:36 85 16 135/76 08/24/24 12:22 93 14 143/68 08/24/24 12:08 97.3 F L 101 H 18 154/76 08/24/24 07:18 98.8 F 95 18 125/76 08/24/24 03:40 97.9 F 91 18 146/78 08/24/24 03:24 97.8 F 91 17 143/88 08/23/24 23:00 86 18 140/90 08/23/24 20:27 97.9 F 86 18 153/93 Pulse Ox 08/24/24 12:58 92 L 08/24/24 12:46 94 L 08/24/24 12:36 94 L 08/24/24 12:22 94 L 08/24/24 12:08 92 L 08/24/24 07:18 91 L 08/24/24 03:40 99 08/24/24 03:24 95 08/23/24 23:00 90 L 08/23/24 20:27 97 Intake and Output 08/23/24 08/24/24 08/24/24 22:59 06:59 14:59 Intake Total 800 Output Total 10 Balance 790 Intake: IV 800 Output: Estimated Blood Loss 10 Other: # Voids 1 Weight 99.79 kg 99.79 kg GENERAL: The patient is alert and oriented x3, not in any acute distress. Well developed, well nourished. HEENT: Pupils are round and equally reacting to light. EOMI. No scleral icterus. No conjunctival pallor. Normocephalic, atraumatic. No pharyngeal erythema. No thyromegaly. CARDIOVASCULAR: S1 and S2 present. No murmurs, rubs, or gallops. PULMONARY: Chest is clear to auscultation, no wheezing , no crackles. -ABDOMEN: Soft, nontender, nondistended, normoactive bowel sounds. No palpable organomegaly. Laparoscopic small wounds closed MUSCULOSKELETAL: No joint swelling or deformity. EXTREMITIES: No cyanosis, clubbing, or pedal edema. NEUROLOGICAL: Gross neurological examination did not reveal any focal deficits. SKIN: No rashes. no petechiae. Results CBC & Chem 7: 08/23/24 21:05 08/23/24 21:05 Labs: Abnormal Lab Results - Last 24 Hours (Table) 08/23/24 08/23/24 08/23/24 Range/Units 21:05 21:05 21:05 WBC 18.8 H (3.8-10.6) k/uL Hct 46.2 H (34.0-46.0) % Neutrophils # 17.4 H (1.3-7.7) k/uL Lymphocytes # 0.9 L (1.0-4.8) k/uL Sodium 136 L (137-145) mmol/L Glucose 164 H (74-99) mg/dL Plasma Lactic Acid Good (0.7-2.0) mmol/L Urine Appearance Cloudy H (Clear) Urine Protein Trace H (Negative) Urine Ketones 2+ H (Negative) Urine Blood Trace H (Negative) Urine RBC 6 H (0-5) /hpf Urine WBC 17 H (0-5) /hpf Ur Squamous Epith Cells 22 H (0-4) /hpf Amorphous Sediment Occasional H (None) /hpf Urine Bacteria Rare H (None) /hpf Hyaline Casts 10 H (0-2) /lpf Urine Mucus Few H (None) /hpf 08/23/24 Range/Units 21:05 WBC (3.8-10.6) k/uL Hct (34.0-46.0) % Neutrophils # (1.3-7.7) k/uL Lymphocytes # (1.0-4.8) k/uL Sodium (137-145) mmol/L Glucose (74-99) mg/dL Plasma Lactic Acid Good 4.0 H* (0.7-2.0) mmol/L Urine Appearance (Clear) Urine Protein (Negative) Urine Ketones (Negative) Urine Blood (Negative) Urine RBC (0-5) /hpf Urine WBC (0-5) /hpf Ur Squamous Epith Cells (0-4) /hpf Amorphous Sediment (None) /hpf Urine Bacteria (None) /hpf Hyaline Casts (0-2) /lpf Urine Mucus (None) /hpf Thrombosis Risk Factor Assmnt - Choose All That Apply Each Risk Factor Represents 2 Points: Age 61-74 years Thrombosis Risk Factor Assessment Total Risk Factor Score: 2 Thrombosis Risk Factor Assessment Level: Low Risk Assessment and Plan Assessment: Acute appendicitis s/p laparoscopic appendectomy on 08/24 Leukocytosis secondary to above Chronic stable right lung nodule Hepatic steatosis Hyperlipidemia Plan: Continue with postop care Pain management Follow-up appendix biopsy General Surgery team following closely Monitor WBC count Further recommendation based on the clinical course DVT prophylaxis: Subcutaneous heparin GI prophylaxis: Pepcid
[2024-08-24] MEDS: METOPROLOL TARTRATE 50 MG TAB PO SCH (21:00)
[2024-08-24] MEDS: FAMOTIDINE 20 MG/2 ML VIAL IV SCH (21:00)
[2024-08-24] MEDS: ASPIRIN 81 MG PO SCH (21:00)
[2024-08-24] MEDS: PRAVASTATIN SODIUM 40 MG TAB PO SCH (21:00)
[2024-08-24] MEDS: HEPARIN SODIUM,PORCINE 5,000 UNIT/ML 1 ML VIAL SQ SCH (21:01)
[2024-08-25] MEDS: LEVOTHYROXINE 75 MCG TAB PO SCH (05:55)
[2024-08-25 08:33] LABS: HCT 38.8 % (37.2-46.3); HGB 12.1 g/dL (12.0-15.0); MCH 29.1 pg (27.0-32.0); MCHC 31.2 g/dL (32.0-37.0); MCV 93.3 FL (80.0-97.0); Mean Platelet Volume 11.8 FL (9.5-12.2); NRBC Per 100 WBC 0 X 10*3/uL (0.00-0.01); Platelet Count 262 X 10*3/uL (140-440); RBC 4.16 X 10*6/uL (4.10-5.20); RDW 13.7 % (11.5-14.5); WBC 14.94 X 10*3/uL (4.50-10.00)
[2024-08-25 09:23] LABS: BUN/Creat Ratio 8.78 Ratio (12.00-20.00); Blood Urea Nitrogen 7.9 mg/dL (9.0-27.0); Calcium 8.4 mg/dL (8.7-10.3); Carbon Dioxide 22.2 mmol/L (21.6-31.8); Chloride 106 mmol/L (96-109); Glucose 109 mg/dL (70-110); Magnesium 2.1 mg/dL (1.5-2.4); Potassium 4.5 mmol/L (3.5-5.5); Sodium 140 mmol/L (135-145)
[2024-08-25] MEDS: LISINOPRIL-HCTZ 10-12.5 MG 1 EACH TAB PO SCH (10:17)
--- NOTE | 2024-08-25 11:01 | P.PN ---
Subjective Progress Note Date: 08/25/24 SURGICAL PROGRESS NOTE CHIEF COMPLAINT: Appendicitis HISTORY OF PRESENT ILLNESS: Patient is postop day #1 status post laparoscopic appendectomy. Her abdominal pain is controlled. She denies any nausea or vomiting. She does feel weak in her legs. Having some difficulty with mobility. Afebrile. WBC is down from 18 to 14.94. Hgb 12.1 PHYSICAL EXAM: VITAL SIGNS: Reviewed. GENERAL: Well-developed in no acute distress. ABDOMEN: Soft. Nondistended. Diffuse tenderness. Incision sites clean dry and intact. NEUROLOGIC: Alert and oriented. Cranial nerves II through XII grossly intact. Extremities: Lower extremity strength equal bilaterally. Patient able to move both lower extremities. Sensation intact. ASSESSMENT: 1. Acute appendicitis status post laparoscopic appendectomy PLAN: -Consult PT OT to help ambulate patient -Abdominal binder ordered -Continue pain management. Start [place] for oral pain medication. -Encourage patient to increase activity level -Continue regular diet -Discontinue IV fluids Physician Electrical Cad Technician note has been reviewed by physician. Signing provider agrees with the documented findings, assessment, and plan of care. Objective - Vital Signs Vital signs: Vital Signs Temp 98.3 F 08/25/24 07:06 Pulse 73 08/25/24 07:06 Resp 16 08/25/24 07:06 BP 114/71 08/25/24 07:06 Pulse Ox 90 L 08/25/24 07:06 FiO2 Intake & Output 08/24/24 08/25/24 08/25/24 18:59 06:59 18:59 Intake Total 1840 Output Total 10 Balance 1830 Intake: IV 800 Intake, IV Titration 800 Amount Sodium Chloride 0.9% 1, 800 000 ml @ 100 mls/hr IV . Q10H [facility] Rx#:[id number] Oral 240 Output: Estimated Blood Loss 10 Other: Voiding Method Toilet # Voids 1 1 # Bowel Movements 0 - Labs CBC & Chem 7: 08/25/24 02:59 08/25/24 02:59 Labs: Abnormal Lab Results - Last 24 Hours (Table) 08/25/24 Range/Units 02:59 WBC 14.94 H (4.50-10.00) X 10*3/uL MCHC 31.2 L (32.0-37.0) g/dL
--- NOTE | 2024-08-25 12:48 | P.PN ---
Subjective This is a pleasant 69 years old female who presents initially because of lower abdominal pain and constipation. Patient was found to have acute pancreatitis and she was taken to the OR. She is s/p laparoscopic cholecystectomy. Today's postop day #0. I saw the patient in the recovery room, she was still drowsy could not provide information that was obtained from staff cardiac code On admission patient is afebrile. Vitals stable. Labs showing leukocytosis with WBC 18.8 rest of CBC, BMP, LFT and i INR were unremarkable. Lactic acid was elevated 4 came back to reference range at 1.9. CT of the abdomen pelvis showing acute uncomplicated appendicitis, diverticulosis, right pulmonary nodule stable since 2019 and hepatic steatosis. 08/25 Patient is awake and alert She still have low appetite Complains from right lower quadrant pain about 4-5/10 in severity She does not have bowel movement Leukocytosis improving down to 14,000 No other new complaint Discussed with surgery team. No need for antibiotic per their recommendation. Will continue monitoring. Possible discharge 24 to 48 hours if she keeps improving Objective - Vital Signs Vital signs: Vital Signs Temp 97.8 F 08/25/24 11:45 Pulse 78 08/25/24 11:45 Resp 17 08/25/24 11:45 BP 143/76 08/25/24 11:45 Pulse Ox 90 L 08/25/24 11:45 FiO2 Intake & Output 08/24/24 08/25/24 08/25/24 18:59 06:59 18:59 Intake Total 1840 Output Total 10 Balance 1830 Intake: IV 800 Intake, IV Titration 800 Amount Sodium Chloride 0.9% 1, 800 000 ml @ 100 mls/hr IV . Q10H [facility] Rx#:[id number] Oral 240 Output: Estimated Blood Loss 10 Other: Voiding Method Toilet Toilet # Voids 1 1 2 # Bowel Movements 0 - Exam GENERAL: The patient is alert and oriented x3, not in any acute distress. Well developed, well nourished. HEENT: Pupils are round and equally reacting to light. EOMI. No scleral icterus. No conjunctival pallor. Normocephalic, atraumatic. No pharyngeal erythema. No thyromegaly. CARDIOVASCULAR: S1 and S2 present. No murmurs, rubs, or gallops. PULMONARY: Chest is clear to auscultation, no wheezing , no crackles. ABDOMEN: Soft, nontender, nondistended, normoactive bowel sounds. No palpable organomegaly. Laparoscopic wounds are closed and healing MUSCULOSKELETAL: No joint swelling or deformity. EXTREMITIES: No cyanosis, clubbing, or pedal edema. NEUROLOGICAL: Gross neurological examination did not reveal any focal deficits. SKIN: No rashes. no petechiae. - Labs CBC & Chem 7: 08/25/24 02:59 08/25/24 02:59 Labs: Abnormal Lab Results - Last 24 Hours (Table) 08/25/24 08/25/24 Range/Units 02:59 02:59 WBC 14.94 H (4.50-10.00) X 10*3/uL MCHC 31.2 L (32.0-37.0) g/dL BUN 7.9 L (9.0-27.0) mg/dL BUN/Creatinine Ratio 8.78 L (12.00-20.00) Ratio Calcium 8.4 L (8.7-10.3) mg/dL Microbiology - Last 24 Hours (Table) 08/23/24 21:05 Urine Culture - Final Urine,Voided Assessment and Plan Assessment: Acute appendicitis s/p laparoscopic appendectomy on 08/24 Leukocytosis secondary to above Chronic stable right lung nodule Hepatic steatosis Hyperlipidemia Plan: Continue with postop care Pain management Follow-up appendix biopsy General Surgery team following closely Monitor WBC count Further recommendation based on the clinical course DVT prophylaxis: Subcutaneous heparin GI prophylaxis: Pepcid
[2024-08-26] MEDS: HYDROcodone/APAP 5-325MG 1 EACH TAB PO PRN (00:34)
[2024-08-26 08:20] LABS: Basophils # (A) 0.06 X 10*3/uL (0.00-0.10); Basophils % (A) 0.6 %; Eosinophils # (A) 0.17 X 10*3/uL (0.04-0.35); Eosinophils % (A) 1.7 %; HGB 10.7 g/dL (12.0-15.0); Lymphocytes # (A) 2.34 X 10*3/uL (0.90-5.00); Lymphocytes % (A) 23.1 %; MCH 28.9 pg (27.0-32.0); MCHC 31.5 g/dL (32.0-37.0); MCV 91.9 FL (80.0-97.0); Mean Platelet Volume 11.5 FL (9.5-12.2); Monocytes # (A) 0.61 X 10*3/uL (0.20-1.00); NRBC Per 100 WBC 0 X 10*3/uL (0.00-0.01); Neutrophils # (A) 6.87 X 10*3/uL (1.80-7.70); Platelet Count 217 X 10*3/uL (140-440); RDW 13.4 % (11.5-14.5); WBC 10.11 X 10*3/uL (4.50-10.00)
--- NOTE | 2024-08-26 12:01 | P.PN ---
Subjective Progress Note Date: 08/26/24 SURGICAL PROGRESS NOTE CHIEF COMPLAINT: Appendicitis HISTORY OF PRESENT ILLNESS: Patient is postop day #2 status post laparoscopic appendectomy. Pain is controlled. Denies any nausea or vomiting. She did work with physical therapy. They are recommending home at discharge. Afebrile. WBC is down from 14.9-10.11 Hgb 10.7 PHYSICAL EXAM: VITAL SIGNS: Reviewed. GENERAL: Well-developed in no acute distress. ABDOMEN: Soft. Nondistended. Diffuse tenderness. Incision sites clean dry and intact. NEUROLOGIC: Alert and oriented. Cranial nerves II through XII grossly intact. ASSESSMENT: 1. Acute appendicitis status post laparoscopic appendectomy PLAN: -Patient can be discharged from surgical standpoint -No further antibiotics required at discharge -Encourage patient to ambulate Physician Senior Fire Protection Engineer note has been reviewed by physician. Signing provider agrees with the documented findings, assessment, and plan of care. Objective - Vital Signs Vital signs: Vital Signs Temp 98.3 F 08/26/24 06:55 Pulse 62 08/26/24 08:00 Resp 16 08/26/24 08:00 BP 110/65 08/26/24 06:55 Pulse Ox 95 08/26/24 06:55 FiO2 Intake & Output 08/25/24 08/26/24 08/26/24 18:59 06:59 18:59 Intake Total 590 Balance 590 Intake: Oral 590 Other: Voiding Method Toilet Toilet Toilet # Voids 2 2 - Labs CBC & Chem 7: 08/26/24 04:31 08/25/24 02:59 Labs: Abnormal Lab Results - Last 24 Hours (Table) 08/26/24 Range/Units 04:31 WBC 10.11 H (4.50-10.00) X 10*3/uL RBC 3.70 L (4.10-5.20) X 10*6/uL Hgb 10.7 L (12.0-15.0) g/dL Hct 34.0 L (37.2-46.3) % MCHC 31.5 L (32.0-37.0) g/dL Immature Gran # 0.06 H (0.00-0.04) X 10*3/uL Microbiology - Last 24 Hours (Table) 08/23/24 23:15 Blood Culture - Preliminary Blood 08/23/24 21:05 Urine Culture - Final Urine,Voided
[2024-08-26 12:20] VITALS: BP 120/73; PULSE 60; RESP 18; TEMP 97.9
--- NOTE | 2024-08-27 00:56 | P.DS ---
Providers Date of admission: 08/24/24 01:09 Attending physician: Susi Villarreal Consults: 08/23/24 23:09 Consult Physician Stat Consulting Provider: Flex Patel Reason/Comments: Appendicitis Do you want consulting provider notified?: Yes, Notify in am Primary care physician: Carina Rainey Hospital Course: Diagnoses: Acute appendicitis s/p laparoscopic appendectomy on 08/24 Leukocytosis secondary to above Chronic stable right lung nodule Hepatic steatosis Hyperlipidemia Hospital course: This is a pleasant 69 years old female who presents initially because of lower abdominal pain and constipation. Patient was found to have acute pancreatitis and she was taken to the OR. She is s/p laparoscopic cholecystectomy. Postoperatively she was improving slowly and gradually. Today she denies any abdominal pain, she was able to ambulate, she tolerates diet. She does not have bowel movement yet. She is afebrile. Her leukocytosis improved significantly from 18,000 down to 10,000. She denies any other new complaints. I discussed the case with surgery team who cleared her for discharge. I talked to the patient and she wants to go home today and she feels ready for discharge. Problems and management plan were discussed with the patient and he verbalized understanding and acceptance Patient was found stable and can be discharged home in guarded prognosis however he needs follow-up as an outpatient. Patient was instructed to follow up with PCP Dr. Rainey within one week and patient agrees Patient was instructed to follow-up with the general surgery Dr. Patel in 1 to 2 weeks after discharge and she agrees I discussed case with surgery team, they do not recommend antibiotics upon discharge. Also patient with no fever and leukocytosis significantly improved. Hence no need for antibiotics Physical exam Gen: patient is a AAOx3, no distress CVS: S1-S2, RRR, no murmur Lungs: B/L CTA, no wheezing -Abdomen: soft, no distention, no tenderness, positive bowel sounds. Laparos copic wounds are closed and healing Extremity: no leg edema or induration Time spent more than 35 minutes Patient Condition at Discharge: Good Plan - Discharge Summary Discharge Rx Participant: No New Discharge Prescriptions: New Docusate [Colace] 100 mg PO BID #30 capsule HYDROcodone/APAP 5-325MG [[place] 5-325] 1 tab PO Q6HR PRN 3 Days #12 tab PRN Reason: Pain Continue Metoprolol Tartrate [Lopressor] 50 mg PO BID Levothyroxine Sodium [Synthroid] 75 mcg PO DAILY Pravastatin Sodium [Pravachol] 40 mg PO HS Aspirin [Adult Low Dose Aspirin EC] 81 mg PO HS Lisinopril-Hctz 10-12.5 mg [Zestoretic 10-12.5] 1 tab PO DAILY Discharge Medication List Aspirin [Adult Low Dose Aspirin EC] 81 mg PO HS 08/24/24 [History] Levothyroxine Sodium [Synthroid] 75 mcg PO DAILY 08/24/24 [History] Lisinopril-Hctz 10-12.5 mg [Zestoretic 10-12.5] 1 tab PO DAILY 08/24/24 [History] Metoprolol Tartrate [Lopressor] 50 mg PO BID 08/24/24 [History] Pravastatin Sodium [Pravachol] 40 mg PO HS 08/24/24 [History] Docusate [Colace] 100 mg PO BID #30 capsule 08/26/24 [Rx] HYDROcodone/APAP 5-325MG [[place] 5-325] 1 tab PO Q6HR PRN 3 Days #12 tab 08/26/24 [Rx] Follow up Appointment(s)/Referral(s): Flex Patel DO [Doctor of Osteopathic Medicine] - 1 Week (Please call the office to schedule a follow up appointment) Carina Rainey MD [Primary Care Provider] - 1-2 days (please call the office to schedule a follow up appointment) Patient Instructions/Handouts: Hydrocodone/Acetaminophen (By mouth), Laxative, Stool Softeners (By mouth) Activity/Diet/Wound Care/Special Instructions: No driving while taking [place] No lifting over 10 pounds You may shower. No soaking or tub baths for 2 weeks Very light activity until you are reevaluated at your follow up appointment with your surgeon resume your previous diet activity is restricted till you see your doctor Discharge Disposition: HOME SELF-CARE
--- NOTE | 2024-08-28 21:03 | CDI ---
Documentation Clarification Form Date: 08/28/2024 08:37:12 PM From: Earnestine Quezada Phone: Admit Date: 08/24/2024 01:09:00 AM Patient Name: Leigh Roper Visit Number: [id number] Discharge Date: 08/26/2024 12:34:00 PM ATTENTION: The Clinical Documentation Specialists (CDI) and [facility] Coding Staff appreciate your assistance in clarifying documentation. Please respond to the clarification below the line at the bottom and electronically sign. The CDI & [facility] Coding staff will review the response and follow-up if needed. Please note: Queries are made part of the Legal Health Record. If you have any questions, please contact the author of this message via ITS. Doctor/Provider: Hernesto E Sheet Conflicting documentation has been found in the medical record. As attending physician, please provide clarification. Acute appendicitis ED Note, H&P, Progress Note 08/25, 08/26 and DCS Acute pancreatitis H&P, Progress Note 08/25, DCS History/Risk Factors: 69yo F, Acute appendicitis, leukocytosisRTlung nodule, hepatic steatosis, HLD, HTN, mildcardiomegaly, inguinal hernia bilaterally with umbilical hernia Clinical Indicators: Abdomen/pelvicCT shows acute uncomplicatedappendicitiscolonic diverticula, stable right lower lobe 7 mmpulmonary nodule, mildcardiomegaly,hepatic steatosisfat-containing inguinal herniabilaterally withumbilical hernia. Treatment: Initially provided IV normal saline, Dilaudid and Toradol as well as p.o. mag citrate. Patient notespainrelief. IV Zosyn initiated. Laparoscopicappendectomy Please clarify which diagnosis is most appropriate: [ ] Acute appendicitis [ ] Acute pancreatitis [ ] Acute pancreatitis and appendicitis [ ] Other (please specify) [ x] Unable to determine (Template Last Revised: August 2020) MTDD
--- NOTE | 2024-08-29 09:29 | CDI ---
Documentation Clarification Form Date: 08/29/2024 09:22:40 AM From: Earnestine Quezada Phone: Admit Date: 08/24/2024 01:09:00 AM Patient Name: Leigh Roper Visit Number: [id number] Discharge Date: 08/26/2024 12:34:00 PM ATTENTION: The Clinical Documentation Specialists (CDI) and [facility] Coding Staff appreciate your assistance in clarifying documentation. Please respond to the clarification below the line at the bottom and electronically sign. The CDI & [facility] Coding staff will review the response and follow-up if needed. Please note: Queries are made part of the Legal Health Record. If you have any questions, please contact the author of this message via ITS. Doctor/Provider: Flex Patel Conflicting documentation has been found in the medical record. Please provide clarification. Acute appendicitisED Note, H P, Progress Note 08/25, 08/26 and DCS Acute pancreatitisH P, Progress Note 08/25, DCS History/Risk Factors: 69yo F,Acute appendicitis,leukocytosis,RTlung nodule, hepatic steatosis, mildcardiomegaly,HLD,HTN, inguinal herniabilaterally with umbilical hernia Clinical Indicators: Abdomen/pelvicCTshows acute uncomplicatedappendicitiscolonic diverticula, stable right lower lobe 7 mmpulmonary nodule, mildcardiomegaly,hepatic steatosisfat-containing inguinal herniabilaterally withumbilical hernia. Treatment: Initially provided IV normal saline, Deluded and Toradol as well as p.o. mag citrate. Patient notespainrelief. IV Zosyn initiated. Laparoscopicappendectomy Please clarify which diagnosis is most appropriate: [ x]Acute appendicitis [ ]Acute pancreatitis [ ]Acute pancreatitisandappendicitis [ ] Other (please specify) [ ] Unable to determine (Template LastRevised: August 2020) MTDD
== END 2024-08-26 12:34 | disposition home or self-care (01) | DRG 399 ==
LOC: EC 20:07 → 4SSUR 08-24 01:09 → 5NMEDONC 08-25 09:34
PROVIDERS: ADMIT Internal Medicine; ATTEND Internal Medicine
PROC: 0DTJ4ZZ Resection of Appendix, Percutaneous Endoscopic Approach (ICD-10-PCS; principal; 2024-08-24 10:38)
DX: K35.80 Unspecified acute appendicitis (principal); E78.5 Hyperlipidemia, unspecified; I11.9 Hypertensive heart disease without heart failure; K76.0 Fatty (change of) liver, not elsewhere classified; R73.9 Hyperglycemia, unspecified; R91.1 Solitary pulmonary nodule; R82.4 Acetonuria; K40.20 Bilateral inguinal hernia, without obstruction or gangrene, not specified as recurrent; K42.9 Umbilical hernia without obstruction or gangrene; K57.30 Diverticulosis of large intestine without perforation or abscess without bleeding; Z74.09 Other reduced mobility; K59.00 Constipation, unspecified; Z87.19 Personal history of other diseases of the digestive system; Z90.49 Acquired absence of other specified parts of digestive tract; Z79.82 Long term (current) use of aspirin; Z79.890 Hormone replacement therapy; Z79.899 Other long term (current) drug therapy
CPT/HCPCS: 36415; 74177; 80048; 80053; 81001; 82150; 83605; 83690; 83735; 85025; 85027; 85610; 87040; 87086; 88304; 96361; 96365; 96375; 99285

== ENCOUNTER 2024-10-14 11:57 | Day surgery (SDC) | payer MEDICARE ==
[2024-10-13 10:41] VITALS: BMI 40.2
[~2024-10-14 11:57] MED LIST: LIDOCAINE 1% (10MG/ML) FOR IV START INTRADERMA PRN
[2024-10-14 12:23] VITALS: TEMP 97.8
[2024-10-14] MEDS: IV FLUID CONTINUATION 1,000 ML IV ONE (12:25)
[2024-10-14] MEDS: LACTATED RINGERS 1,000 ML IV SCH (12:25)
[2024-10-14 12:35] LABS: Glucose,Whole Blood 108 mg/dL (70-110)
[2024-10-14] MEDS ORDERED: PROPOFOL 10 MG/ML 20 ML VIAL IV ONE (12:51)
[2024-10-14 13:54] VITALS: BP 123/74; PULSE 60; RESP 16
--- NOTE | 2024-10-14 20:32 | P.OP ---
Date of Procedure: 10/14/24 Preoperative Diagnosis: appendicitis Postoperative Diagnosis: appendicitis Procedure(s) Performed: Colonscopy Anesthesia: JADEA Surgeon: Flex Patel Pathology: none sent Condition: stable Disposition: PACU Indications for Procedure: recent appendicitis Operative Findings: diverticulosis Description of Procedure: Patient was brought to the endoscopy where a timeout was performed and everyone agreed with the information recited. Next an adult sized olymposcope was used to traverse the anus, rectum, sigmoid colon, descending colon, transverse colon, and ascending colon to the cecum. The scope was slowly retracted looking at the mucosa in a circumferential fashion. There was no polyps or cancers seen in the lumen. The scope was retracted to sigmoid colon where diverticuli was observed. The scope was retracted out of the rectum/anus intact.
== END 2024-10-14 13:56 | disposition home or self-care (01) ==
LOC: ORWHC2ENDO 11:57
PROVIDERS: ATTEND Surgery
DX: K37 Unspecified appendicitis (principal); K57.30 Diverticulosis of large intestine without perforation or abscess without bleeding; I10 Essential (primary) hypertension; E78.5 Hyperlipidemia, unspecified; Z79.890 Hormone replacement therapy; Z79.82 Long term (current) use of aspirin; Z79.899 Other long term (current) drug therapy
CPT/HCPCS: 45378; J2704